=== PATIENT | female | born 1975 | race Caucasian/White ===

== ENCOUNTER 2017-12-05 19:31 | Emergency (ER) | payer OTHER ==
[~2017-12-05] VITALS: Ht 170.2 cm; Wt 108.9 kg
[~2017-12-05 19:31] MED LIST: APAP500 PO; IBUPROFEN 200200 M1 PO; MAG-AL PLUS SUS30 ML PO; NORCO 5-325 TA1 EACH PO; PRILOSEC 20 MG20 MG PO; SERTRALINE HCL50 MG PO
[2017-12-05] MEDS ORDERED: LIPITOR10 MG PO (19:36)
[2017-12-05] MEDS ORDERED: METFORMIN HCL500 MG PO (19:36)
[2017-12-05] MEDS ORDERED: NORCO 5-325 TA1 EACH PO (20:32)
== END 2017-12-05 20:50 | disposition home or self-care (01) ==
LOC: ER 19:31
DX: S42.025A Nondisplaced fracture of shaft of left clavicle, initial encounter for closed fracture (principal); S09.90XA Unspecified injury of head, initial encounter; S16.1XXA Strain of muscle, fascia and tendon at neck level, initial encounter; F32.9 Major depressive disorder, single episode, unspecified; Z88.5 Allergy status to narcotic agent; W01.198A Fall on same level from slipping, tripping and stumbling with subsequent striking against other object, initial encounter; Y92.89 Other specified places as the place of occurrence of the external cause; Y93.89 Activity, other specified; Y99.8 Other external cause status